=== PATIENT | female | born 1960 | race Caucasian/White ===

== ENCOUNTER → 2020-06-19 | Outpatient (CLI) | payer OTHER ==
[2016-04-20 00:54] VITALS: BP 169/79
[~2020-06-19] MED LIST: IBUP-1027 PO; LOSA-73 PO; LOVA20TA2 PO
--- NOTE | 2020-06-19 14:20 | KCIC ---
Three-view bilateral hand HISTORY: Pain AP lateral oblique views bilaterally There is an old ununited fractures from the tip of the ulnar styloid bilaterally. There is mild marginal spurring of the interphalangeal joints of the hand bilaterally. There is no lytic destructive changes. There is mild marginal spurring of the first metacarpal carpal joint bilaterally. IMPRESSION: Moderate degenerative changes consistent with osteoarthrosis. No acute findings. Electronically signed by: Ward Leigh III, MD (06/19/2020 2:17 PM) [facility]
== END ==
LOC: KCIC 10:47
PROVIDERS: ATTEND Nurse Practitioner Family
DX: M19.042 Primary osteoarthritis, left hand (principal); M19.041 Primary osteoarthritis, right hand; M77.8 Other enthesopathies, not elsewhere classified
CPT/HCPCS: 73130

== ENCOUNTER 2020-11-20 02:05 | Emergency (ER) | payer OTHER ==
[~2020-11-20] VITALS: Ht 157.5 cm; Wt 61.2 kg
--- NOTE | 2020-11-20 03:07 | ED.ADGEN ---
Past Medical History Past Medical History: High Cholesterol, Hypertension Past Surgical History: Other Additional Past Surgical Histo: ECTOPIC X2 Smoking Status: Current Every Day Smoker Alcohol Use: Occasionally Drug Use: None General Adult EDM: Chief Complaint: WRIST PAIN HPI: HPI: Patient is 60-year-old female who presents to the emergency room complaining of right wrist pain after a plexiglass door fell on her wrist. She is a has been able to move her wrist and fingers without difficulty. She does not have any numbness in her hand. She states that this happened a little over an hour ago. Her last tetanus shot was within the last 5 years. Pain feels like an achy throbbing pain. It is constant in nature. Review of Systems: Review of Systems: Complete ROS is negative unless otherwise documented in HPI Allergies: Allergies: Allergies Coded Allergies Type Severity Reaction Last Updated Verified Sulfa (Sulfonamide Antibiotics) Allergy Intermediate Rash 07/04/14 Yes Physical Exam: PE: General: Awake, alert, NAD. Well Nourished, well hydrated. Cooperative HEENT: Atraumatic, EOMI, PERRL, airway patent, moist oral mucosa Neck: Supple, trachea midline GI: Soft, nondistended, nontender, no masses MSK: Right wrist: 2x2 raised, bruised area with middle abrasion, FROM, normal sensation, 2+ radial pulse Skin: Warm, dry, intact Neuro: A&O x3, speech NL, sensory and motor grossly intact, no focal deficits Psych: Normal affect, normal mood, not suicidal or homicidal Current Patient Data: Vital Signs: Vital Signs Date Time Temp Pulse Resp B/P (MAP) Pulse Ox O2 Delivery O2 Flow Rate FiO2 11/20/20 02:36 98.1 56 20 148/67 (94) 100 Room Air 98.1 EKG: EKG: [] Heart Score: C/O Chest Pain: N/A Risk Factors: Risk Factors: DM, Current or recent (<one month) smoker, HTN, HLP, family his tory of CAD, obesity. Risk Scores: Score 0 - 3: 2.5% MACE over next 6 weeks - Discharge Home Score 4 - 6: 20.3% MACE over next 6 weeks - Admit for Clinical Observation Score 7 - 10: 72.7% MACE over next 6 weeks - Early Invasive Strategies Radiology/Procedures: Radiology/Procedures: [] Course & Med Decision Making: Course & Med Decision Making Pertinent Labs and Imaging studies reviewed. (See chart for details) Patient is a 60-year-old female who presents to the emergency room complaining of wrist pain after a plexiglass door fell on her wrist. Patient tetanus is up-to-date. X-rays were ordered for wrist and hand. X-ray is normal patient's test results and vitals while in the ED were fully reviewed and discussed with the patient. Patient is stable and at this time does not need admission to the hospital. We have discussed strict return precautions and the importance of following up with their Primary Care Physician. Patient stated understanding and was given an opportunity to ask any questions. Patient is in agreement with plan. Dragon Disclaimer: Dragon Disclaimer: This electronic medical record was generated, in whole or in part, using a voice recognition dictation system. Departure Departure Impression: Primary Impression: Contusion of right wrist, initial encounter Disposition: 01 DC HOME SELF CARE/HOMELESS Condition: STABLE Referrals: AUSTIN GLYNN MD (PCP) Patient Instructions: Contusion JAVED BREWER MD Nov 20, 2020 03:06
--- NOTE | 2020-11-20 03:23 | RAD ---
RIGHT HAND, VIEWS 3 RIGHT WRIST, 3 VIEWS Indication: Pain, trauma. Hand Findings: There is moderate arthropathy of the first CMC. No fractures or osseous lesions are present. Minerali zation is normal. There are no erosive changes. Wrist findings: There is no acute fracture or dislocation. Well-corticated ossific body at the tip of the ulnar stylo id may be accessory ossicle or due to old fracture. Mild joint space narrowing of the second and thir d MCP. Small marginal osteophytes of the second DIP joint. The mineralization is normal. There is no soft tissue swelling or radiopaque foreign body IMPRESSION: No acute fracture or dislocation. Electronically signed by: Isai Naranjo MD (11/20/2020 3:21 AM) [facility]
[2020-11-20 03:50] VITALS: BP 132/60
== END 2020-11-20 03:58 | disposition home or self-care (01) ==
LOC: ER 02:05
DX: S60.211A Contusion of right wrist, initial encounter (principal); I10 Essential (primary) hypertension; E78.00 Pure hypercholesterolemia, unspecified; F17.200 Nicotine dependence, unspecified, uncomplicated; W18.39XA Other fall on same level, initial encounter; Y93.89 Activity, other specified; Y92.89 Other specified places as the place of occurrence of the external cause; Y99.8 Other external cause status
CPT/HCPCS: 73110; 73120; 99284